=== PATIENT | female | born 1975 | race Caucasian/White ===

== ENCOUNTER 2017-04-06 16:45 | Emergency (ER) ==
[2017-04-06 16:45] VITALS: BMI 36.0
[2017-04-06 16:50] VITALS: BP 134/73; TEMP 99.4
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
== END 2017-04-06 17:32 | disposition home or self-care (01) ==
LOC: ED 16:45
DX: T23.201A Burn of second degree of right hand, unspecified site, initial encounter (principal); T23.271A Burn of second degree of right wrist, initial encounter; X10.2XXA Contact with fats and cooking oils, initial encounter
CPT/HCPCS: 99283

== ENCOUNTER 2017-09-25 08:21 | Outpatient (CLI) ==
[2017-09-25 08:59] LABS: CREATININE 0.84 mg/dL (0.60-1.30)
--- NOTE | 2017-09-25 10:51 | CT ---
EXAM: CT of the abdomen pelvis with and without contrast History: Chronic diarrhea, history of gastric sleeve. Comparison: CT abdomen pelvis 11/19/2015 Technique: Multiplanar CT images through the abdomen pelvis were obtained with and without the admin istration of IV contrast. Findings: Lung bases are free of consolidation. No acute osseous abnormalities. Severe degenerative disc disease at L5-S1. No renal stones and no hydronephrosis. Postsurgical changes of the stomach are again noted. No urete ral calculi. No gallstones identified by CT. No focal liver or splenic lesions. Pancreas is unremarkable. Adren al glands are within normal limits. No renal masses. No bowel obstruction. The appendix is not dil ated or inflamed. No bladder wall thickening. Adnexal structures appear appropriate for patient's a ge. No free air and no ascites. Mild to moderate colonic stool. No lymphadenopathy. Impression: No acute intra-abdominal or pelvic process. Severe degenerative disc disease at L5-S1
== END 2017-09-25 08:22 | disposition home or self-care (01) ==
LOC: RAD 08:21
PROVIDERS: ATTEND Physician Assistant
DX: K63.9 Disease of intestine, unspecified (principal); Z87.19 Personal history of other diseases of the digestive system; Z98.890 Other specified postprocedural states; Z83.79 Family history of other diseases of the digestive system; K21.9 Gastro-esophageal reflux disease without esophagitis; R11.2 Nausea with vomiting, unspecified; R19.8 Other specified symptoms and signs involving the digestive system and abdomen; R19.7 Diarrhea, unspecified; R10.84 Generalized abdominal pain
CPT/HCPCS: 36415; 82565

== ENCOUNTER 2017-10-07 09:48 | Outpatient (CLI) | END 2017-10-07 09:49 | disposition home or self-care (01) | LOC: LAB 09:48 | PROVIDERS: ATTEND Physician Assistant | DX: K63.9 Disease of intestine, unspecified (principal); K21.9 Gastro-esophageal reflux disease without esophagitis; R11.2 Nausea with vomiting, unspecified; R19.8 Other specified symptoms and signs involving the digestive system and abdomen; R19.7 Diarrhea, unspecified; R10.84 Generalized abdominal pain; Z87.19 Personal history of other diseases of the digestive system; Z98.890 Other specified postprocedural states; Z83.79 Family history of other diseases of the digestive system | CPT/HCPCS: 36415; 87015; 87045; 87493; 87899 ==

== ENCOUNTER 2017-12-22 16:16 | Outpatient (CLI) | END 2017-12-22 16:17 | disposition home or self-care (01) | LOC: LAB 16:16 | PROVIDERS: ATTEND Family Medicine | DX: D68.9 Coagulation defect, unspecified (principal) | CPT/HCPCS: 36415; 83520; 85027; 85240; 85245; 85246; 85610; 85730 ==